=== PATIENT | male | born 1960 | race Caucasian/White ===

== ENCOUNTER → 2020-05-23 10:40 | Outpatient (BNVA) | payer MEDICARE, MEDICAID, SELFPAY | PROVIDERS: PCP Internal Medicine; Referring Provider Internal Medicine; Visit Provider Internal Medicine | DX: G47.33 Obstructive sleep apnea (adult) (pediatric) (principal); J44.9 Chronic obstructive pulmonary disease, unspecified; J30.9 Allergic rhinitis, unspecified; E66.9 Obesity, unspecified; Z68.35 Body mass index [BMI] 35.0-35.9, adult; Z99.89 Dependence on other enabling machines and devices | CPT/HCPCS: 80061; 99213 ==

== ENCOUNTER → 2020-07-13 10:07 | Outpatient (BNVA) | payer MEDICARE, MEDICAID, SELFPAY | PROVIDERS: PCP Internal Medicine; Referring Provider Internal Medicine; Visit Provider Internal Medicine Cardiovascular Disease | DX: I25.10 Atherosclerotic heart disease of native coronary artery without angina pectoris (principal); I48.0 Paroxysmal atrial fibrillation; E78.5 Hyperlipidemia, unspecified; G47.33 Obstructive sleep apnea (adult) (pediatric); Z99.89 Dependence on other enabling machines and devices | CPT/HCPCS: 93005; 99212 ==

== ENCOUNTER → 2020-08-15 10:54 | Outpatient (BNVA) | payer MEDICARE, MEDICAID, SELFPAY | PROVIDERS: PCP Internal Medicine; Visit Provider Internal Medicine | DX: Z13.89 Encounter for screening for other disorder (principal) | CPT/HCPCS: Q3014 ==

== ENCOUNTER → 2020-09-20 11:36 | Outpatient (BNVA) | payer MEDICARE, MEDICAID, SELFPAY | PROVIDERS: PCP Internal Medicine; Visit Provider Nurse Practitioner Family | DX: Z13.89 Encounter for screening for other disorder (principal) | CPT/HCPCS: Q3014 ==

== ENCOUNTER → 2020-10-12 09:05 | Outpatient (BNVA) | payer MEDICARE, MEDICAID, SELFPAY | PROVIDERS: PCP Internal Medicine; Visit Provider Internal Medicine Cardiovascular Disease | DX: I49.1 Atrial premature depolarization (principal) | CPT/HCPCS: 93005 ==

== ENCOUNTER → 2020-10-18 10:00 | Outpatient (BNVA) | payer MEDICARE, MEDICAID, SELFPAY | PROVIDERS: PCP Internal Medicine; Visit Provider Nurse Practitioner Family | DX: I10 Essential (primary) hypertension (principal); I48.0 Paroxysmal atrial fibrillation; I25.10 Atherosclerotic heart disease of native coronary artery without angina pectoris; Z79.899 Other long term (current) drug therapy; Z87.891 Personal history of nicotine dependence | CPT/HCPCS: 99212 ==

== ENCOUNTER → 2020-11-28 08:32 | Outpatient (REF) | payer MEDICARE, MEDICAID, SELFPAY ==
--- NOTE | 2020-11-28 08:40 | CA_ITS ---
Transthoracic Echocardiogram Amended Patient (Last, First, Middle): Isacc Frank J Gender: Male Date of : 1960 Age: 60 Procedure Date: 11/28/2020 Procedure Type: Transthoracic Echocardiogram Location: OP Height: 167.64 cm Weight: 99.79 kg BSA: 2.08 m2 Heart Rate: bpm BP: 169 / 79 mmHg [employer]olids Management Technician: DIANA Vilchis MD: Rochelle PABON Dry End Tester: Dom Boyd MD Symptoms: I25.10 - Atherosclerotic heart disease of [place] coronary artery without angina pectoris Study Quality: Good ECG Rhythm: Sinus Conclusions: - 1. Normal LV systolic and diastolic function 2. Normal cardiac valvular Doppler 3. Normal RV systolic pressure 4. No pericardial effusion Findings Left Ventricle Normal left ventricular size, thickness, and systolic function. The visually estimated ejection fraction is between 60-65%. Diastolic function is normal for age. Right Ventricle Normal right ventricular cavity size and systolic function. Atria The left atrium is likely dilated. There is lipomatous hypertrophy of the interatrial septum. There is no evidence of interatrial shunt. The right atrium is normal in size. Aortic Valve There is mild calcification of the aortic valve. There is mild thickening of the aortic valve. There is no aortic valve stenosis. There is no aortic valve regurgitation. Mitral Valve Normal mitral valve structure and function. There is trace mitral valve regurgitation. There is no mitral valve stenosis. Pulmonic Valve The pulmonic valve is likely normal. Tricuspid Valve Likely normal tricuspid valve structure and function. There is mild tricuspid valve regurgitation. The right ventricular systolic pressure is normal. The right ventricular systolic pressure is 35 mmHg. Normal right atrial pressure. There is no evidence of pulmonary hypertension. Great Vessels All visible segments of the aorta are normal in size. The pulmonary artery was not well visualized. Venous The inferior vena cava is normal in size and collapses greater than 50% with inspiration. Pericardium/Pleural There is no evidence of pericardial effusion. Prior Study Comparison No significant change compared to prior study dated: 02/21/2015. Measurements 2D Linear Measurements RVIDd: 3.70 RVIDd Index: 1.78 IVSd: 1.24 0.6-0.9/0.6-1.0 cm LVIDd: 4.87 3.9-5.3/4.2-5.9 cm LVIDd Index: 2.34 2.4-3.2/2.2-3.1 cm/m2 LVIDs: 3.51 2.0-3.6 cm LVPWd: 1.49 0.7-1.1 cm Ao Root: 2.70 2.1-3.5 cm LA Diam: 4.20 2.7-3.8/3.0-4.0 cm LAIDs Index: 2.02 1.5-2.3 cm/m2 LV Mass: 336.41 67-162/88-224 g LV Mass Index: 161.74 43-95/49-115 g/m2 LVOT Diam: 2.10 3.0+(-)1.3 cm 2D Volumes LA Vol: 19.90 2D Systolic Function EF 4C: 46.60 >55% EF 2C: 68.70 >55% Mitral Valve MV Pk E: 1.33 MV PK A: 0.70 MV Decel Time: 205.00 E/A: 1.90 E'Lateral: 5.22 E'Medial: 6.53 E/E' Med: 20.40 E/E' Lat: 25.50 Aortic Valve AoV Pk Jose: 2.05 AoV Mn Jose: 1.37 AoV VTI: 0.34 AoV Pk Grad: 17.00 Aov Mn Grad: 9.00 NED Cont.VTI: 2.56 LVOT LVOT Pk Jose: 1.62 LVOT Mn Jose: 0.97 LVOT VTI: 0.26 LVOT Pk Grad: 10.00 LVOT Mn Grad: 5.00 LVOT Diam: 2.10 LVOT Area: 3.46 Diastolic Function MV Pk E: 1.33 MV Pk A: 0.70 E/A: 1.90 E'Medial: 6.53 E/E' Med: 20.40 E' Laterial: 5.22 E/E' Lat: 25.50 Tricuspid Valve TR Pk Jose: 2.81 TR Pk Grad: 32.00 RA Press: 3.00 RVSP: 35.00 Great Vessels Aorta Ao Root-2D: 2.70 2.0-3.7 cm Ao Asc: 3.40 2.1-3.4 cm Updated in Other Vendor System with Status of Final Dom Boyd MD electronically signed on 11/29/2020 2:50:52 PM with status of Final
== END ==
LOC: HO.CARD 08:32
PROVIDERS: Visit Provider Nurse Practitioner Family
DX: I25.10 Atherosclerotic heart disease of native coronary artery without angina pectoris (principal); I48.0 Paroxysmal atrial fibrillation; I10 Essential (primary) hypertension
CPT/HCPCS: 93306

== ENCOUNTER → 2020-12-07 10:02 | Outpatient (BNVA) | payer MEDICARE, MEDICAID, SELFPAY | PROVIDERS: PCP Internal Medicine; Referring Provider Internal Medicine; Visit Provider Nurse Practitioner Family | DX: I10 Essential (primary) hypertension (principal); I25.10 Atherosclerotic heart disease of native coronary artery without angina pectoris; I48.0 Paroxysmal atrial fibrillation; R06.02 Shortness of breath; Z98.890 Other specified postprocedural states | CPT/HCPCS: 93005; 99212 ==

== ENCOUNTER 2020-12-19 10:23 | Outpatient (REF) | payer MEDICARE, MEDICAID, SELFPAY ==
--- NOTE | ~2020-12-19 | US_ITS ---
EXAMINATION: US RETROPERITONEAL LIMITED (RENAL ONLY) CLINICAL INFORMATION: Hypertension. COMPARISON: None. TECHNIQUE: Doppler color and grayscale evaluation of the kidneys and bilateral renal arteries and renal veins. FINDINGS: RIGHT KIDNEY: 12.8 x 5.2 x 5.6 cm (SAG x AP x TRV). The right kidney is abnormally rotated. The kidney is normal in size, contour, and echogenicity. Renal cortical thickness is normal. There is a 2 x 2.2 x 2.5 cm cyst in the lower pole. No calculi or mass. No hydronephrosis. LEFT KIDNEY: 12.7 x 5.7 x 5.1 cm (SAG x AP x TRV). The kidney is normal in size, contour, and echogenicity. Renal cortical thickness is normal. No calculi or focal parenchymal lesions. No hydronephrosis. The mid abdominal aorta is normal in caliber and demonstrates normal peak systolic velocity of 88 cm/s. The right renal artery is patent. Right renal artery peak systolic velocities are normal measuring 158 cm/s proximally, 114 cm/s in the midportion and 85 cm/s distally. The right renal artery to aorta ratio is normal measuring 1.8 cm. Resistive indices of the segmental renal arteries in the right kidney are normal measuring 0.7-0.8. The left renal artery is patent. Left renal artery peak velocities are normal measuring 135 cm/s proximally, 111 cm/s in the midportion and 54 cm/s distally. The left renal artery to aorta ratio is normal measuring 1.5. Resistive indices of the segmental renal arteries in the left kidney are normal measuring 0.7-0.8. The left renal vein is patent. US/US renal doppler IMPRESSION: Right renal cyst. No evidence of renal artery stenosis.
--- NOTE | ~2020-12-19 | US_ITS ---
EXAMINATION: US RETROPERITONEAL LIMITED (RENAL ONLY) CLINICAL INFORMATION: Hypertension. COMPARISON: None. TECHNIQUE: Doppler color and grayscale evaluation of the kidneys and bilateral renal arteries and renal veins. FINDINGS: RIGHT KIDNEY: 12.8 x 5.2 x 5.6 cm (SAG x AP x TRV). The right kidney is abnormally rotated. The kidney is normal in size, contour, and echogenicity. Renal cortical thickness is normal. There is a 2 x 2.2 x 2.5 cm cyst in the lower pole. No calculi or mass. No hydronephrosis. LEFT KIDNEY: 12.7 x 5.7 x 5.1 cm (SAG x AP x TRV). The kidney is normal in size, contour, and echogenicity. Renal cortical thickness is normal. No calculi or focal parenchymal lesions. No hydronephrosis. The mid abdominal aorta is normal in caliber and demonstrates normal peak systolic velocity of 88 cm/s. The right renal artery is patent. Right renal artery peak systolic velocities are normal measuring 158 cm/s proximally, 114 cm/s in the midportion and 85 cm/s distally. The right renal artery to aorta ratio is normal measuring 1.8 cm. Resistive indices of the segmental renal arteries in the right kidney are normal measuring 0.7-0.8. The left renal artery is patent. Left renal artery peak velocities are normal measuring 135 cm/s proximally, 111 cm/s in the midportion and 54 cm/s distally. The left renal artery to aorta ratio is normal measuring 1.5. Resistive indices of the segmental renal arteries in the left kidney are normal measuring 0.7-0.8. The left renal vein is patent. US/US renal BI IMPRESSION: Right renal cyst. No evidence of renal artery stenosis.
== END 2020-12-19 10:24 | disposition home or self-care (01) ==
LOC: HO.US 10:23
PROVIDERS: Visit Provider Nurse Practitioner Family
DX: I10 Essential (primary) hypertension (principal)
CPT/HCPCS: 76775; 93975

== ENCOUNTER → 2021-03-12 13:52 | Outpatient (BNVA) | payer MEDICARE, MEDICAID, SELFPAY | PROVIDERS: PCP Internal Medicine; Referring Provider Internal Medicine; Visit Provider Nurse Practitioner Family | DX: I25.10 Atherosclerotic heart disease of native coronary artery without angina pectoris (principal); I10 Essential (primary) hypertension; I48.0 Paroxysmal atrial fibrillation; R06.02 Shortness of breath; Z98.890 Other specified postprocedural states | CPT/HCPCS: 93005; 99212 ==

== ENCOUNTER 2021-05-03 08:36 | Outpatient (REF) | payer MEDICARE, MEDICAID, SELFPAY ==
[2021-05-03 08:57] LABS: MANUAL DIFF FLAG NO
[2021-05-03 09:25] LABS: Basophils Percent Auto 0.3 % (0-2); Eosinophils Absolute Auto 0.2 X10*3/uL (0.0-0.4); Eosinophils Percent Auto 2.1 % (0-4); Hematocrit 48.8 % (42-52); Hemoglobin 14.8 g/dl (14.0-18.0); Imm Gran Abs Auto 0.08 X10*3/uL (0.00-0.03); Imm Gran Pct Auto 0.9 % (0.0-0.4); Lymphocytes Absolute Auto 1.3 X10*3/uL (1.2-4.9); Lymphocytes Percent Auto 14.3 % (20-40); Mean Corpuscular HGB Conc 30.3 g/dl (31.0-36.0); Mean Corpuscular Hemoglobin 28.3 pg (27.0-33.0); Mean Corpuscular Volume 93.3 fL (80-98); Mean Platelet Volume 10.7 fL (9.4-12.4); Monocytes Absolute Auto 1.1 X10*3/uL (0.1-1.2); Neutrophils Absolute Auto 6.2 X10*3/uL (2.0-8.3); Neutrophils Percent Auto 70.4 % (45-73); Platelet Count 196 X10*3/uL (160-400); Red Blood Count 5.23 X10*6/uL (4.60-5.80); Red Cell Distribution Width 13.8 % (11.0-16.0); White Blood Count 8.8 X10*3/uL (4.8-10.8)
[2021-05-03 10:05] LABS: Alanine Aminotransferase 14 U/L (0-40); Albumin Level 4.1 g/dL (3.5-5.0); Alkaline Phosphatase 79 U/L (39-117); Anion Gap 13 (12-20); Aspartate Amino Transferase 14 U/L (5-37); Bilirubin Total 0.8 mg/dL (0.0-1.0); Blood Urea Nitrogen 7 mg/dL (9-16); Calcium 9.4 mg/dL (8.4-10.2); Carbon Dioxide 36 mmol/L (22-29); Chloride 96 mmol/L (96-108); Cholesterol 160 mg/dL; Estimated Glomerular Filt Rate > 60; Glucose Fasting 169 mg/dL (60-99); HDL Cholesterol 49 mg/dL; LDL Cholesterol Calculated 89 mg/dl; Potassium 4.8 mmol/L (3.3-5.1); Sodium 140 mmol/L (135-145); Total Protein 7.4 g/dL (6.5-8.0); Triglycerides 112 mg/dL
[2021-05-03 10:16] LABS: Thyroid Stimulating Hormone 2.79 uIU/mL (0.32-4.0)
== END 2021-05-03 08:37 | disposition home or self-care (01) ==
LOC: HO.LAB 08:36
PROVIDERS: Nurse Practitioner Family; PCP Internal Medicine; Visit Provider Internal Medicine
DX: Z00.00 Encounter for general adult medical examination without abnormal findings (principal); I10 Essential (primary) hypertension; E11.9 Type 2 diabetes mellitus without complications; E03.9 Hypothyroidism, unspecified
CPT/HCPCS: 36415; 80053; 80061; 84443; 85025

== ENCOUNTER 2021-05-09 11:22 | Inpatient (IN) | payer MEDICARE, MEDICAID, SELFPAY ==
[2021-05-09] VITALS (16 sets, daily range): BP systolic 121–152; BP diastolic 63–73; PULSE 69–76; RESP 11–22; TEMP 34.3–36.6; O2SAT 60–96; BMI 37.1; BMI 39.3
--- NOTE | ~2021-05-09 | XR_ITS ---
EXAMINATION: XR CHEST CLINICAL INFORMATION: Shortness of breath. COMPARISON: Most recent chest radiograph dated 03/21/2020. TECHNIQUE: Frontal view of the chest was obtained. FINDINGS: Mild elevation of the right hemidiaphragm. Patchy bilateral airspace opacities, new/increased when compared to the prior examination. New, small right-sided pleural effusion. Stable cardiomegaly. No pneumothorax. XR/XR chest 1V IMPRESSION: Patchy bilateral airspace opacities and right-sided pleural effusion which are new/increased when compared to the prior examination. Stable cardiomegaly. Findings can be seen in the setting of CHF. An underlying infectious or inflammatory process could be considered in the appropriate clinical setting.
--- NOTE | ~2021-05-09 | XR_ITS ---
EXAMINATION: XR CHEST CLINICAL INFORMATION: Hypoxia COMPARISON: CT chest May 09, 2021. Chest x-ray May 09, 2021 TECHNIQUE: Frontal portable view of the chest was obtained. 11:04 PM FINDINGS: Persistent bilateral patchy airspace opacities at lung bases. Central hilar pulmonary vessels are mildly prominent. Blunting right costophrenic angle due to right pleural effusion. There is heart size enlarged. XR/XR chest 1V IMPRESSION: 1. Persistent bibasilar airspace opacities. 2. Persistent right pleural effusion. 3. Cardiomegaly. Mild central hilar pulmonary vascular prominence.
--- NOTE | ~2021-05-09 | CT_ITS ---
EXAMINATION: CT CHEST WITHOUT CONTRAST CLINICAL INFORMATION: Shortness of breath. COMPARISON: Chest radiograph done earlier today at 2:07 PM. TECHNIQUE: Multidetector volumetric CT imaging of the chest was done. Axial MIP volume rendering provided. Sagittal and coronal reformatted images were obtained. This CT examination was performed using dose optimization techniques as appropriate, variously including the following: *Automated exposure control *Adjustment of mA and/or kV according to patient size (this includes techniques or standardized protocols for targeted exams where dose is matched to indication/reason for exam; i.e. 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 LUNGS: Low lung volumes. There are small bilateral pleural effusions with associated consolidation/atelectasis of the lung bases, right greater than left. There is mild mosaic attenuation of the lung parenchyma with smooth interlobular septal thickening. In the right upper lobe there is a 9 mm somewhat platelike (69, 7) likely representing atelectasis or interlobular septal thickening. No suspicious pulmonary nodules. The main airways are patent. MEDIASTINUM: Cardiomegaly with trace amount of pericardial fluid. Coronary calcifications and atherosclerotic disease of the thoracic aorta. Mediastinal lymphadenopathy, for instance route sales representative nodules are a right pretracheal lymph node measuring up to 1.1 cm in maximum short axis (2104) and a prevascular lymph node measuring up to 8 mm in maximum short axis (20:4). There is a prominent epicardial lymph node measuring up to 7 mm short axis (15:7). Normal appearance of the thyroid gland. PLEURA: As above right greater than left small pleural effusions. No pneumothorax. AXILLA: There are a few prominent and indeterminate bilateral axillary lymph nodes for example measuring up to 7 mm short axis on sagittal image 30:2 on the right axilla and up to 1 cm on the right axillary region (39:4). UPPER ABDOMEN: Unremarkable. OSSEOUS STRUCTURES: No acute osseous abnormalities. Multilevel thoracic spondylosis. Healed nondisplaced right-sided rib fractures. CT/CT chest wo con IMPRESSION: Small bilateral pleural effusions with associated atelectasis of the lung bases and smooth interlobular septal thickening are likely related with pulmonary edema. However, an underlying infectious or inflammatory process cannot be entirely excluded. Mediastinal, epicardial, and axillary lymph nodes are indeterminate but likely reactive in nature. Cardiomegaly.
--- NOTE | 2021-05-09 13:29 | ECG_ITS ---
Test Reason : DYSPNEA Blood Pressure : / mmHG Vent. Rate : 075 BPM Atrial Rate : 075 BPM P-R Int : 166 ms QRS Dur : 106 ms QT Int : 398 ms P-R-T Axes : 059 098 038 degrees QTc Int : 444 ms Normal sinus rhythm Rightward axis Incomplete left bundle branch block Borderline ECG When compared with ECG of 23-MAR-2020 09:38, Premature atrial complexes are no longer Present Referred By: Erin Garcia Electronically Signed By:MECHE COLÓN
--- NOTE | 2021-05-09 13:31 | ED_ITS ---
HPI - SOB/Dyspnea General Chief Complaint: Dyspnea Stated Complaint: diff breathing, both legs swollen Time Seen by Provider: 05/09/21 13:28 Source: patient, family ([id number]) and EMS Mode of arrival: EMS Limitations: no limitations History of Present Illness HPI Narrative: 61-year-old male with history of COPD, coronary artery disease, paroxysmal AFib (treated with cardioversion), patient came in for evaluation of difficulty breathing. Patient stated started about a month ago and progressively and gradually getting worse, symptoms is worsening with exertion or being in the supine position, improving with rest, no associations of chest pain or nausea or vomiting or dizziness. Bilateral lower extremity swelling that is worsening over the past couple weeks, patient is taking water pills and reportedly making good urine. had this symptoms in the past and been evaluated by the bonderizer. Patient also had a history of COPD supposed to use CPAP at home nighttime but patient is not compliant with that. Patient is DNR currently. Patient thinking about ruling into hospice service but not for now and after he feels better. Related Data Home Medications Medication Instructions Recorded Confirmed atorvastatin 80 mg tablet 80 mg PO BEDTIME 05/09/21 05/09/21 bupropion HCl 150 mg tablet,12 hr 300 mg PO DAILY 05/09/21 05/09/21 sustained-release Previous Rx's Medication Instructions Recorded furosemide 20 mg tablet 20 mg PO DAILY #90 tab 07/25/20 diltiazem HCl 120 mg 120 mg PO DAILY #90 cap 09/06/20 capsule,extended release 24 hr fluticasone furoate 200 1 inh INHALATION DAILY #60 cap 12/12/20 mcg-vilanterol 25 mcg/dose inhalation powder (Breo Ellipta) hydralazine 50 mg tablet 50 mg PO TID #90 tab 01/10/21 rivaroxaban 20 mg tablet (Xarelto) 20 mg PO DAILY #90 tab 01/23/21 ipratropium 0.5 mg-albuterol 3 mg 3 ml INHALATION QID PRN #360 ml 03/12/21 (2.5 mg base)/3 mL nebulization soln Ventolin HFA 90 mcg/actuation 2 puff PO QID #18 g NS 03/13/21 aerosol inhaler (albuterol sulfate) losartan 100 mg tablet 100 mg PO DAILY #90 tab 04/02/21 isosorbide mononitrate 60 mg 60 mg PO DAILY #90 tab 04/16/21 tablet,extended release 24 hr montelukast 10 mg tablet 10 mg PO DAILY #90 tab 04/16/21 dronedarone 400 mg tablet (Multaq) 400 mg PO Q12H 90 Days #180 tab 04/18/21 ezetimibe 10 mg tablet (Zetia) 10 mg PO DAILY 90 Days #90 tab 05/03/21 Allergies Allergy/AdvReac Type Severity Reaction Status Date / Time No Known Allergies Allergy Verified 03/12/21 14:00 Review of Systems Review of Systems: All other systems are reviewed and are negative Constitutional: Reports as per HPI and Reports no additional constitutional com plaints Eyes: Reports as per HPI and Reports no additional eye complaints Reports system reviewed and no additional complaints, except as documented Cardiovascular: Reports as per HPI and Reports no additional cardiovascular complaints Respiratory: Reports as per HPI and Reports no additional respiratory complaints Gastrointestinal: Reports as per HPI and Reports no additional gastrointestinal complaints Genitourinary: Reports no additional female genitourinary complaints Musculoskeletal: Reports no additional musculoskeletal complaints Skin/Breast: Reports system reviewed and no additional complaints, except as docu Psychiatric: Reports no additional psychiatric complaints Endocrine: Reports no additional endocrine complaints Hematologic/Lymphatic: Reports no additional hematologic/lymphatic complaints Allergic/Immunologic: Reports no additional allergic/immunologic complaints Reports system reviewed and no additional complaints, except as documented and Reports Abnormal speech present PENDING SALE TO [facility] Past Medical History Medical History Allergic rhinitis CAD (coronary artery disease) COPD (chronic obstructive pulmonary disease) COPD (chronic obstructive pulmonary disease) Hyperlipidemia Obesity GABRIELLE on CPAP Paroxysmal atrial fibrillation Shortness of breath Surgical History Hx of cardiac cath Family History Family History Father Medical history unknown Mother Lung cancer CVD (cardiovascular disease) Hypertension Social History Social History Housing: House Alcohol intake: current Alcohol intake frequency: 3 or more drinks per day Alcohol type: beer Patient Tobacco Use Status: Former Tobacco user Quit Date: 2015 Tobacco use type: Cigarette Years Smoked: 40+/- Second Hand Smoke Exposure: No Use of substances other than those prescribed or required for medical reasons: No Advance Directives: No service: No Current occupational status: disabled Physical Exam Vital Signs: Vital Signs: Last Vital Signs Temp 97.8 F 05/09/21 13:17 Pulse 69 05/09/21 17:57 Resp 16 05/09/21 17:57 BP 131/65 05/09/21 17:57 Pulse Ox 96 05/09/21 17:57 Body Mass Index 37.1 Vital signs have been reviewed as appeared to be correct. Blood pressure normal. Heart rate normal. Respiration rate normal. Temperature normal. Oxygen saturation normal. Appearance: Alert. Oriented X3. No acute distress. Head: Normal external exam. Normocephalic. Atraumatic. No Mendez signs noted. No raccoon eyes noted Eyes: PERRLA. EOMI. Conjunctiva and sclera normal. Eyelids normal. ENT: TM's Normal. Pharynx normal. Uvula midline. Moist mucous membranes. No trismus noted. No drooling noted. No muffled voice noted. Neck: Normal inspection. Neck supple. FROM. No adenopathy. Thyroid Normal. No meningeal signs. No neck mass noted. CVS: Normal heart rate and rhythm. Heart sound normal. No murmurs noted. Pulses normal throughout. Respiratory: No respiratory distress. Painless inspiration. Bilateral diffuse expiratory wheezing with prolonged expiration, bilateral basilar rales nontender. No accessory muscle usage noted or decreased air movement noted. Abdomen: Soft and nontender. Bowel sounds normal in all 4 quadrants. No distent ion noted. No organomegaly noted. No visible injury noted. Back: No CVA tenderness. Full range of motion noted. Skin: Skin warm and dry. Normal skin color. Normal skin turgor. No rashes/lesions/lacerations noted. Extremities: +2 lower extremity pitting edema. Extremities exhibit normal rang e of motion. Extremities nontender. Neuro: Oriented X 3. Cranial nerve exam: II-XII are grossly intact No motor deficit. No sensory deficit. Reflexes normal. Course Course Course Narrative: Assessment and plan. 61-year-old male history of COPD/CAD came in with shortness of breath, clinical history/chest x-ray/are consistent with congestive heart failure exacerbation. Patient is already on diuretics, patient was given extra 40 mg of Lasix with some improvement of patient's symptoms, patient needs to be hospitalized for further CHF management. Reevaluation(s) Reevaluation #1: Patient in the room is more lethargic and difficult to arouse, ABG showed patient is acidotic with hypercarbia showing acute on chronic res piratory failure with hypercarbia, patient was placed on BiPAP machine which showed slight improvement and patient mentation, the case discussed with his brother Evan miranda and before I discussed that with the patient and patient's wishes is to be on hospice service with IT TRAINING SPECIALIST only. That was discussed with the family 1 more time and everybody in agreement that what was the patient wanted, at this point will discontinue any therapeutic measure, discontinue the BiPAP, admit the patient for IT TRAINING SPECIALIST only. Time: 17:01 Reevaluation #2: More talk on conversation with the family/patient given patient's young age and his good chance to have a decent lifestyle if his COPD is well controlled. Patient is postponing decision to be IT TRAINING SPECIALIST until he try BiPAP machine for overnight and stay in ICU. Patient still remains DNR. Will hold off on making the patient IT TRAINING SPECIALIST. Time: 18:35 MDM - SOB/Dyspnea Medical Records Attestation: I reviewed the patient's medical records. Lab Data Attestation: I reviewed the patient's lab results. Result diagrams: 05/09/21 14:48 05/09/21 13:59 Labs: Lab Results 05/09/21 05/09/21 05/09/21 Range/Units 13:57 13:59 13:59 WBC (4.8-10.8) X10*3/uL RBC (4.60-5.80) X10*6/uL Hgb (14.0-18.0) g/dl Hct (42-52) % MCV (80-98) fL MCH (27.0-33.0) pg MCHC (31.0-36.0) g/dl RDW (11.0-16.0) % Plt Count (160-400) X10*3/uL MPV (9.4-12.4) fL Immature Gran % (Auto) (0.0-0.4) % Neut % (Auto) (45-73) % Lymph % (Auto) (20-40) % Cherry % (Auto) (2-11) % Eos % (Auto) (0-4) % Baso % (Auto) (0-2) % Lymph # (Auto) (1.2-4.9) X10*3/uL Cherry # (Auto) (0.1-1.2) X10*3/uL Eos # (Auto) (0.0-0.4) X10*3/uL Baso # (Auto) (0.0-0.2) X10*3/uL Abs Immat Gran (auto) (0.00-0.03) X10*3/uL Absolute Neuts (auto) (2.0-8.3) X10*3/uL Absolute Nucleated RBC (0.0-0.012) X10*3/uL Nucleated RBC % (auto) (0.0-0.2) /100WBC O2 Saturation % ABG pH at Pt Temp (7.35-7.45) ABG pH (Temp Correct) (7.35-7.45) ABG pCO2 at Pt Temp (32-45) mmHg ABG pCO2 (Temp Corrct (32-45) mmHg ABG pO2 at Pt Temp (83-108) mmHg ABG pO2 (Temp Correct (83-108) ABG HCO3 (22-26) mmol/L ABG Base Excess (Actual) mmol/L Sodium 130 L (135-145) mmol/L Potassium 4.4 (3.3-5.1) mmol/L Chloride 87 L (96-108) mmol/L Carbon Dioxide 34 H (22-29) mmol/L Anion Gap 13 (12-20) BUN 8 L (9-16) mg/dL Creatinine 0.79 (0.5-1.4) mg/dL Estim Creat Clear Calc 111.1 Estimated GFR > 60 Random Glucose 153 H (60-115) mg/dL Lactic Acid 0.9 (0.5-2.0) mmol/L Calcium 8.7 D (8.4-10.2) mg/dL Total Bilirubin 1.1 H (0.0-1.0) mg/dL Direct Bilirubin 0.4 (0.0-0.5) mg/dL AST 24 D (5-37) U/L ALT 14 (0-40) U/L Alkaline Phosphatase 78 (39-117) U/L Troponin I High Sens (<3.5-35.0) ng/L B-Natriuretic Peptide (<100) pg/mL Total Protein 7.6 (6.5-8.0) g/dL Albumin 4.2 (3.5-5.0) g/dL Lipase 51 (8-78) U/L Procalcitonin ng/mL COVID-19 ([facility]) Negative (Negative) COVID-19 Clin Com See Note 05/09/21 05/09/21 05/09/21 Range/Units 13:59 14:48 14:48 WBC 9.2 (4.8-10.8) X10*3/uL RBC 5.12 (4.60-5.80) X10*6/uL Hgb 14.7 (14.0-18.0) g/dl Hct 46.2 (42-52) % MCV 90.2 (80-98) fL MCH 28.7 (27.0-33.0) pg MCHC 31.8 (31.0-36.0) g/dl RDW 14.2 (11.0-16.0) % Plt Count 179 (160-400) X10*3/uL MPV 10.3 (9.4-12.4) fL Immature Gran % (Auto) 0.7 H (0.0-0.4) % Neut % (Auto) 71.2 (45-73) % Lymph % (Auto) 14.3 L (20-40) % Cherry % (Auto) 11.5 H (2-11) % Eos % (Auto) 2.0 (0-4) % Baso % (Auto) 0.3 (0-2) % Lymph # (Auto) 1.3 (1.2-4.9) X10*3/uL Cherry # (Auto) 1.1 (0.1-1.2) X10*3/uL Eos # (Auto) 0.2 (0.0-0.4) X10*3/uL Baso # (Auto) 0.0 (0.0-0.2) X10*3/uL Abs Immat Gran (auto) 0.06 H (0.00-0.03) X10*3/uL Absolute Neuts (auto) 6.5 (2.0-8.3) X10*3/uL Absolute Nucleated RBC 0.000 (0.0-0.012) X10*3/uL Nucleated RBC % (auto) 0.0 (0.0-0.2) /100WBC O2 Saturation % ABG pH at Pt Temp (7.35-7.45) ABG pH (Temp Correct) (7.35-7.45) ABG pCO2 at Pt Temp (32-45) mmHg ABG pCO2 (Temp Corrct (32-45) mmHg ABG pO2 at Pt Temp (83-108) mmHg ABG pO2 (Temp Correct (83-108) ABG HCO3 (22-26) mmol/L ABG Base Excess (Actual) mmol/L Sodium (135-145) mmol/L Potassium (3.3-5.1) mmol/L Chloride (96-108) mmol/L Carbon Dioxide (22-29) mmol/L Anion Gap (12-20) BUN (9-16) mg/dL Creatinine (0.5-1.4) mg/dL Estim Creat Clear Calc Estimated GFR Random Glucose (60-115) mg/dL Lactic Acid (0.5-2.0) mmol/L Calcium (8.4-10.2) mg/dL Total Bilirubin (0.0-1.0) mg/dL Direct Bilirubin (0.0-0.5) mg/dL AST (5-37) U/L ALT (0-40) U/L Alkaline Phosphatase (39-117) U/L Troponin I High Sens 11.2 (<3.5-35.0) ng/L B-Natriuretic Peptide 372 H (<100) pg/mL Total Protein (6.5-8.0) g/dL Albumin (3.5-5.0) g/dL Lipase (8-78) U/L Procalcitonin 0.16 ng/mL COVID-19 ([facility]) (Negative) COVID-19 Clin Com 05/09/21 Range/Units 16:18 WBC (4.8-10.8) X10*3/uL RBC (4.60-5.80) X10*6/uL Hgb (14.0-18.0) g/dl Hct (42-52) % MCV (80-98) fL MCH (27.0-33.0) pg MCHC (31.0-36.0) g/dl RDW (11.0-16.0) % Plt Count (160-400) X10*3/uL MPV (9.4-12.4) fL Immature Gran % (Auto) (0.0-0.4) % Neut % (Auto) (45-73) % Lymph % (Auto) (20-40) % Cherry % (Auto) (2-11) % Eos % (Auto) (0-4) % Baso % (Auto) (0-2) % Lymph # (Auto) (1.2-4.9) X10*3/uL Cherry # (Auto) (0.1-1.2) X10*3/uL Eos # (Auto) (0.0-0.4) X10*3/uL Baso # (Auto) (0.0-0.2) X10*3/uL Abs Immat Gran (auto) (0.00-0.03) X10*3/uL Absolute Neuts (auto) (2.0-8.3) X10*3/uL Absolute Nucleated RBC (0.0-0.012) X10*3/uL Nucleated RBC % (auto) (0.0-0.2) /100WBC O2 Saturation 94.0 % ABG pH at Pt Temp 7.19 L* (7.35-7.45) ABG pH (Temp Correct) 7.19 L* (7.35-7.45) ABG pCO2 at Pt Temp 102 H* (32-45) mmHg ABG pCO2 (Temp Corrct 103 H* (32-45) mmHg ABG pO2 at Pt Temp 90 (83-108) mmHg ABG pO2 (Temp Correct 91 (83-108) ABG HCO3 39 H (22-26) mmol/L ABG Base Excess (Actual) 6.2 mmol/L Sodium (135-145) mmol/L Potassium (3.3-5.1) mmol/L Chloride (96-108) mmol/L Carbon Dioxide (22-29) mmol/L Anion Gap (12-20) BUN (9-16) mg/dL Creatinine (0.5-1.4) mg/dL Estim Creat Clear Calc Estimated GFR Random Glucose (60-115) mg/dL Lactic Acid (0.5-2.0) mmol/L Calcium (8.4-10.2) mg/dL Total Bilirubin (0.0-1.0) mg/dL Direct Bilirubin (0.0-0.5) mg/dL AST (5-37) U/L ALT (0-40) U/L Alkaline Phosphatase (39-117) U/L Troponin I High Sens (<3.5-35.0) ng/L B-Natriuretic Peptide (<100) pg/mL Total Protein (6.5-8.0) g/dL Albumin (3.5-5.0) g/dL Lipase (8-78) U/L Procalcitonin ng/mL COVID-19 ([facility]) (Negative) COVID-19 Clin Com Imaging Data Chest x-ray: Radiologist's impression: Patchy bilateral airspace opacities and right- sided pleural effusion which are new/increased when compared to the prior examination. Stable cardiomegaly. Findings can be seen in the setting of CHF. An underlying infectious or inflammatory process could be considered in the appropriate clinical setting. ECG Data Interpretation: Normal sinus rhythm at 75 beats per minute, right axis deviation, incomplete left bundle branch block, no ST-T ischemic change. Critical Care Time Critical Care Time Critical Care Time: Yes Total Critical Care Time: 60 Attestation: I spent 60 minutes providing critical care service to the patient, this including time spent at the bedside to evaluate the patient, reassess the patient, monitoring vital signs, review labs, and radiographic studies, counseling the patient/family, discussing the case with consultants, disposition the patient. Discharge Plan Discharge Clinical Impression: CAD (coronary artery disease), Congestive heart failure, Acute exacerbation of chronic obstructive airways disease, Acute and chronic respiratory failure with hypercapnia Patient Disposition: Admitted As Inpatient
--- NOTE | 2021-05-09 13:50 | PHA.MEDREC ---
Pharmacy Consult ? Medication Reconciliation Pharmacy has completed the medication reconciliation. Patient was not coherent during discussion. At first seem like a good historian, but the more we talk the more out of it he seemed. All medications have been recently filled expect nitrogylercin tablets and the nystatin oral suspension. Med Rec done based on pharmacy information. Lyn Bernal, PharmD
[2021-05-09] MEDS: Furosemide 40 MG/4 ML VIAL IVPUSH ×2 (14:02→22:16)
[2021-05-09 14:29] LABS: Lactic Acid 0.9 mmol/L (0.5-2.0)
[2021-05-09 14:34] LABS: COVID-19 Test Negative (Negative); IDNOW Serial# 08D9AD1C
[2021-05-09 14:35] LABS: Alanine Aminotransferase 14 U/L (0-40); Albumin Level 4.2 g/dL (3.5-5.0); Alkaline Phosphatase 78 U/L (39-117); Anion Gap 13 (12-20); Aspartate Amino Transferase 24 U/L (5-37); Bilirubin Direct 0.4 mg/dL (0.0-0.5); Bilirubin Total 1.1 mg/dL (0.0-1.0); Blood Urea Nitrogen 8 mg/dL (9-16); Calcium 8.7 mg/dL (8.4-10.2); Carbon Dioxide 34 mmol/L (22-29); Chloride 87 mmol/L (96-108); Creatinine Clr Calc Pharmacy 111.1; Estimated Glomerular Filt Rate > 60; Glucose Random 153 mg/dL (60-115); Lipase 51 U/L (8-78); Potassium 4.4 mmol/L (3.3-5.1); Sodium 130 mmol/L (135-145); Total Protein 7.6 g/dL (6.5-8.0)
[2021-05-09 15:00] LABS: MANUAL DIFF FLAG NO
[2021-05-09 15:01] LABS: Basophils Percent Auto 0.3 % (0-2); Eosinophils Absolute Auto 0.2 X10*3/uL (0.0-0.4); Hematocrit 46.2 % (42-52); Hemoglobin 14.7 g/dl (14.0-18.0); Imm Gran Abs Auto 0.06 X10*3/uL (0.00-0.03); Imm Gran Pct Auto 0.7 % (0.0-0.4); Lymphocytes Absolute Auto 1.3 X10*3/uL (1.2-4.9); Lymphocytes Percent Auto 14.3 % (20-40); Mean Corpuscular HGB Conc 31.8 g/dl (31.0-36.0); Mean Corpuscular Hemoglobin 28.7 pg (27.0-33.0); Mean Corpuscular Volume 90.2 fL (80-98); Mean Platelet Volume 10.3 fL (9.4-12.4); Monocytes Absolute Auto 1.1 X10*3/uL (0.1-1.2); Monocytes Percent Auto 11.5 % (2-11); Neutrophils Absolute Auto 6.5 X10*3/uL (2.0-8.3); Neutrophils Percent Auto 71.2 % (45-73); Platelet Count 179 X10*3/uL (160-400); Red Blood Count 5.12 X10*6/uL (4.60-5.80); Red Cell Distribution Width 14.2 % (11.0-16.0); White Blood Count 9.2 X10*3/uL (4.8-10.8)
[2021-05-09 15:20] LABS: Troponin-I High Sensitivity 11.2 ng/L (<3.5-35.0)
--- NOTE | 2021-05-09 15:35 | PC.NURSE ---
Rogelio Tracy (brother) - Cell Phone #:
[2021-05-09 16:08] LABS: B Type Natriuretic Peptide 372 pg/mL (<100)
--- NOTE | 2021-05-09 16:12 | PC.NURSE ---
pt is still lethargic and sleepy. HAving difficulty remaining awaker during assessment. Pt was found with oxygen off satting in the 60s, pt was re connected to oxygen at 6 liters and sats climbed to baseline 92%. ADELINA greer came to bedside for low saturation. pt stataes no pain. no other changes from earlier assessment. Pt states he does wear oxygen at home 2-4L
[2021-05-09 16:24] LABS: ABG Base Excess 6.2 mmol/L; ABG HCO3 39 mmol/L (22-26); ABG pCO2 102 mmHg (32-45); ABG pCO2 TC 103 mmHg (32-45); ABG pH 7.19 (7.35-7.45); ABG pH TC 7.19 (7.35-7.45); ABG pO2 90 mmHg (83-108); ABG pO2 TC 91 (83-108)
[2021-05-09 16:24] LABS: ABG Refer to POC result
[2021-05-09 17:15] LABS: Procalcitonin 0.16 ng/mL
--- NOTE | 2021-05-09 17:54 | PM.CCHP ---
History of Present Illness Date of Service: 05/09/21 Attending physician on admission: Erin Garcia Chief Complaint: Increasing shortness of breath 61-year-old male who denies any drug or alcohol issue comes in with lethargy as a manifestation of altered mental status and increasing shortness of breath and I saw him in the emergency room obtained a dry CT scan which I thought showed a a bilateral micronodular infiltrate and very small right greater than left bilateral pleural effusions but with a slight degree of a overlying atelectasis nothing are chattering no distinct infiltrate and my bedside echo showed that he did have mild dilatation of the right heart normal left ventricular size and systolic function without segmental wall motion abnormality and no pericardial disease no primary valve disease ejection fraction certainly exceeding 65% and on BiPAP E appear to be waking up a little and his initial blood gas had indicated acute on chronic hypercarbic respiratory failure and he had a diffuse either erythroderma co reaction secondary to his chronic via bilateral leg edema it certainly did not appear to be a cellulitis otherwise by exam he had good bilateral carotid upstrokes no neck vein distension abdomen was just moderately obese he really appeared by body habitus to be a chronic Pickwickian Review of Systems Review of Systems: Denied any other constitutional issues no fever no chills I did note that he was taking dronedarone so clearly has a background of paroxysmal atrial fibrillation Also taking Xarelto due to the paroxysmal atrial fibrillation Yes all other systems are reviewed and are negative [facility] Past Medical History Medical History Allergic rhinitis CAD (coronary artery disease) COPD (chronic obstructive pulmonary disease) COPD (chronic obstructive pulmonary disease) Hyperlipidemia Obesity GABRIELLE on CPAP Paroxysmal atrial fibrillation Shortness of breath Family History Family History Father Medical history unknown Mother Lung cancer CVD (cardiovascular disease) Hypertension Surgical History Surgical History Hx of cardiac cath Social History Social History Household Members: Unknown / Unable to assess Housing: Unknown / Unable to assess Do you presently have visiting nurse or other home services: No Unable to assess alcohol history related to: Unable to respond Alcohol intake: current Alcohol intake frequency: 3 or more drinks per day Alcohol type: beer Patient Tobacco Use Status: Former Tobacco user Quit Date: 2015 Tobacco use type: Cigarette Years Smoked: 40+/- Second Hand Smoke Exposure: No Use of substances other than those prescribed or required for medical reasons: Unable to respond Currently Displaying Signs/Symptoms of Drug Intoxication Withdrawal: No Advance Directives: Yes Advance Directives on File: Yes Advance Directives Date on File: 05/09/21 Recently lost weight without trying: Unsure Nutrition Risks: No Nutritional Risk service: No Current occupational status: disabled Meds Allergies Allergy/AdvReac Type Severity Reaction Status Date / Time No Known Allergies Allergy Verified 03/12/21 14:00 Active Medications: Current Medications Pharmacy Consult (Consult Rx Perform Med Rec) 1 each MISCELLANE ONCE PRN PRN Reason: Consult order Pharmacy Consult (Consult Rx Perform Med Rec) 1 each MISCELLANE ONCE PRN PRN Reason: Consult order Home Medications Medication Instructions Recorded Confirmed Last Taken Type atorvastatin 80 mg tablet 80 mg PO BEDTIME 05/09/21 05/09/21 Unknown History bupropion HCl 150 mg tablet,12 hr 300 mg PO DAILY 05/09/21 05/09/21 Unknown History sustained-release Physical Exam Vital Signs: Vital Signs: Last Vital Signs Temp 97.8 F 05/09/21 13:17 Pulse 76 05/09/21 16:10 Resp 11 L 05/09/21 16:28 BP 147/73 H 05/09/21 16:10 Pulse Ox 92 05/09/21 16:10 Body Mass Index 37.1 Lethargic but arousable and nonfocal neurologically Skin of lower extremities over but appears to be 2+ peripheral edema showed a little bit of weeping bilateral rubor which was symmetric does not appear to be cellulitic Cardiac exam with no gallops or murmurs and has good bilateral carotid upstrokes Benign abdomen no organomegaly Chest with decreased breath sounds bilaterally Results Labs CBC and Chem 7: 05/10/21 04:36 05/10/21 04:36 Labs: Laboratory Results - last 24 hr 05/09/21 05/09/21 05/09/21 13:57 13:59 13:59 MCV MCH MCHC RDW Plt Count MPV Immature Gran % (Auto) Neut % (Auto) Lymph % (Auto) Wilkes % (Auto) Eos % (Auto) Baso % (Auto) Lymph # (Auto) Wilkes # (Auto) Eos # (Auto) Baso # (Auto) Abs Immat Gran (auto) Absolute Neuts (auto) Absolute Nucleated RBC Nucleated RBC % (auto) O2 Saturation ABG pH at Pt Temp ABG pH (Temp Correct) ABG pCO2 at Pt Temp ABG pCO2 (Temp Corrct ABG pO2 at Pt Temp ABG pO2 (Temp Correct ABG HCO3 ABG Base Excess (Actual) Anion Gap 13 Estim Creat Clear Calc 111.1 Estimated GFR > 60 Random Glucose 153 H Lactic Acid 0.9 Calcium 8.7 D Total Bilirubin 1.1 H Direct Bilirubin 0.4 AST 24 D ALT 14 Alkaline Phosphatase 78 Troponin I High Sens B-Natriuretic Peptide Total Protein 7.6 Albumin 4.2 Lipase 51 Procalcitonin COVID-19 ([facility]) Negative COVID-19 Clin Com See Note 05/09/21 05/09/21 05/09/21 13:59 14:48 14:48 MCV 90.2 MCH 28.7 MCHC 31.8 RDW 14.2 Plt Count 179 MPV 10.3 Immature Gran % (Auto) 0.7 H Neut % (Auto) 71.2 Lymph % (Auto) 14.3 L Wilkes % (Auto) 11.5 H Eos % (Auto) 2.0 Baso % (Auto) 0.3 Lymph # (Auto) 1.3 Wilkes # (Auto) 1.1 Eos # (Auto) 0.2 Baso # (Auto) 0.0 Abs Immat Gran (auto) 0.06 H Absolute Neuts (auto) 6.5 Absolute Nucleated RBC 0.000 Nucleated RBC % (auto) 0.0 O2 Saturation ABG pH at Pt Temp ABG pH (Temp Correct) ABG pCO2 at Pt Temp ABG pCO2 (Temp Corrct ABG pO2 at Pt Temp ABG pO2 (Temp Correct ABG HCO3 ABG Base Excess (Actual) Anion Gap Estim Creat Clear Calc Estimated GFR Random Glucose Lactic Acid Calcium Total Bilirubin Direct Bilirubin AST ALT Alkaline Phosphatase Troponin I High Sens 11.2 B-Natriuretic Peptide 372 H Total Protein Albumin Lipase Procalcitonin 0.16 COVID-19 ([facility]) COVID-19 [employer] Com 05/09/21 16:18 MCV MCH MCHC RDW Plt Count MPV Immature Gran % (Auto) Neut % (Auto) Lymph % (Auto) Wilkes % (Auto) Eos % (Auto) Baso % (Auto) Lymph # (Auto) Wilkes # (Auto) Eos # (Auto) Baso # (Auto) Abs Immat Gran (auto) Absolute Neuts (auto) Absolute Nucleated RBC Nucleated RBC % (auto) O2 Saturation 94.0 ABG pH at Pt Temp 7.19 L* ABG pH (Temp Correct) 7.19 L* ABG pCO2 at Pt Temp 102 H* ABG pCO2 (Temp Corrct 103 H* ABG pO2 at Pt Temp 90 ABG pO2 (Temp Correct 91 ABG HCO3 39 H ABG Base Excess (Actual) 6.2 Anion Gap Estim Creat Clear Calc Estimated GFR Random Glucose Lactic Acid Calcium Total Bilirubin Direct Bilirubin AST ALT Alkaline Phosphatase Troponin I High Sens B-Natriuretic Peptide Total Protein Albumin Lipase Procalcitonin COVID-19 ([facility]) COVID-19 Clin Com Imaging Radiologist's Impressions: Impressions Chest X-Ray 05/09/21 13:29 IMPRESSION: Patchy bilateral airspace opacities and right-sided pleural effusion which are new/increased when compared to the prior examination. Stable cardiomegaly. Findings can be seen in the setting of CHF. An underlying infectious or inflammatory process could be considered in the appropriate clinical setting. Chest CT 05/09/21 16:37 IMPRESSION: Small bilateral pleural effusions with associated atelectasis of the lung bases and smooth interlobular septal thickening are likely related with pulmonary edema. However, an underlying infectious or inflammatory process cannot be entirely excluded. Mediastinal, epicardial, and axillary lymph nodes are indeterminate but likely reactive in nature. Cardiomegaly. Assessment and Plan (1) Acute exacerbation of chronic obstructive airways disease: Status: Acute (2) Acute and chronic respiratory failure with hypercapnia: Status: Acute (3) Asthma: Status: Acute (4) Hx of cardiac cath: Status: Acute (5) Shortness of breath: Status: Acute (6) Uncontrolled hypertension: Status: Acute (7) CAD (coronary artery disease): Status: Acute (8) Paroxysmal atrial fibrillation: Status: Acute (9) Hyperlipidemia: Status: Acute (10) COPD (chronic obstructive pulmonary disease): Status: Acute (11) GABRIELLE on CPAP: Status: Acute (12) Obesity: Status: Acute Clearly and an acute on chronic hypercapnic respiratory failure and in large part a combination of underlying COPD with with probable exacerbation but no apparent infectious reason along with untreated obstructive sleep apnea and obesity hypoventilation so the entire plan revolved around instituting BiPAP and covering him for COPD exacerbation with IV steroids and aggressive bronchodilator therapy
[2021-05-09] MEDS: methylPREDNISolone Sod Succ 125 MG/2 ML VIAL IVPUSH (18:34)
[2021-05-09 18:43] LABS: ABG Base Excess 8.3 mmol/L; ABG HCO3 42 mmol/L (22-26); ABG pCO2 107 mmHg (32-45); ABG pCO2 TC 106 mmHg (32-45); ABG pH 7.19 (7.35-7.45); ABG pO2 96 mmHg (83-108); ABG pO2 TC 95 (83-108)
--- NOTE | 2021-05-09 18:43 | MHC.CM.PN ---
CM requested to meet with pt and brother regarding hospice and [employer] per Dr. Garcia. Dr Guerra in to evaluate pt. Asked for CM to be present. Pt initially stated he wanted hospice care. Dr. Guerra further explained [employer] and hospice care vs having some medical treatment for his end stage COPD, as he is only 61 years old.. Upon further conversation with MD and brother, pt requests to have medical treatment at this time to see if his condition improves. Pt is currently on Bipap and is A&O and able to make decisions. HCP reviewed, completed and signed. HCP/brother Rogelio Tracy. Pt states that his brother knows what he wants . Pt will be admitted to ICU. IMM reviewed with HCP/brother Rogelio Tracy and signed 05/09/2021@1835. Pt lives with his brother, uses a CPAP and a wheelchair. Brother tells CM that the CPAP does not fit his brother well, and that's why he doesn't use it as ordered. Pt has no services. D/C plan depends and hospital course. Home with [facility] if pt recovers vs Hospice. Brother is agreeable to [facility] if needed. Contact card given. CM to follow for d/c needs.
[2021-05-09 18:47] LABS: ABG Refer to POC result
[2021-05-09] MEDS: LORazepam 2 MG/ML VIAL 1 MG IVPUSH (20:05)
[2021-05-09 20:20] LABS: Appearance Urine CLEAR; Color Urine DK YELLOW; Glucose Urine UA NEG (NEG); Leukocyte Esterase Urine NEG (NEG); Nitrite Urine NEG (NEG); PH 5.5 (5.0-8.0); Specific Gravity - Urine >= 1.030 (1.005-1.025); UACC Culture Trigger NO; Urine Blood TRACE (NEG); Urine Ketones NEG (NEG); Urine Protein 2+ MG/DL (NEG-TRACE)
[2021-05-09 20:20] LABS: Venous Blood Gas Refer to POC result
[2021-05-09 20:21] LABS: VBG HCO3 35 mmol/L (22-26); VBG pCO2 67 mmHg; VBG pH 7.32 (7.32-7.43); VBG pO2 156 mmHg
[2021-05-09 20:41] LABS: Amphetamine Screen Urine Not Detected (Not Detect); Barbiturates, Urine Not Detected (Not Detect); Benzodiazepines Screen Urine Not Detected (Not Detect); Cannabinoid Screen Urine Not Detected (Not Detect); Cocaine Screen Urine Not Detected (Not Detect); Fentanyl, urine Not Detected (Not Detect); Opiate Screen Urine Not Detected (Not Detect); Phencyclidine Screen Urine Not Detected (Not Detect)
[2021-05-09 20:42] LABS: Granular Casts Urine 0-2 /LPF; Mucus Urine TRACE /LPF; Squamous Epithelial Cell Urine 1+ /LPF
[2021-05-09 20:43] LABS: Bacteria Urine TRACE /LPF; Hyaline Casts Urine 0-2 /LPF; WBC Urine 0 /HPF (0-4)
[2021-05-09] MEDS: Enoxaparin Sodium 40 MG/0.4 ML SYRINGE SUBCUT (20:43)
[2021-05-09] MEDS: Famotidine/PF 20 MG/2 ML VIAL IVPUSH (20:43)
[2021-05-09] MEDS: Albuterol/Iprat 2.5/0.5MG 3 ML AMPUL.NEB INHALE (21:12)
[2021-05-09 22:34] LABS: Glucose, Whole Blood 149 mg/dL (60-115)
[2021-05-09 22:50] LABS: ABG Base Excess 4.9 mmol/L; ABG HCO3 40 mmol/L (22-26); ABG pCO2 126 mmHg (32-45); ABG pCO2 TC 120 mmHg (32-45); ABG pH 7.11 (7.35-7.45); ABG pH TC 7.13 (7.35-7.45); ABG pO2 80 mmHg (83-108); ABG pO2 TC 74 (83-108)
[2021-05-09] MEDS: EPINEPHrine 1 MG/ML VIAL 0.3 MG SUBCUT (23:07)
[2021-05-09] MEDS: Albuterol Sulfate (0.083%) 2.5 MG/3 ML VIAL.NEB 5 MG INHALE (23:16)
[2021-05-09 23:26] LABS: ABG Refer to POC result
[2021-05-09 23:44] LABS: MANUAL DIFF FLAG NO
[2021-05-09 23:46] LABS: Basophils Percent Auto 0.4 % (0-2); Eosinophils Absolute Auto 0.1 X10*3/uL (0.0-0.4); Eosinophils Percent Auto 0.6 % (0-4); Hematocrit 50.7 % (42-52); Hemoglobin 15.4 g/dl (14.0-18.0); Lymphocytes Absolute Auto 0.8 X10*3/uL (1.2-4.9); Lymphocytes Percent Auto 7.4 % (20-40); Mean Corpuscular HGB Conc 30.4 g/dl (31.0-36.0); Mean Corpuscular Hemoglobin 28.3 pg (27.0-33.0); Mean Corpuscular Volume 93.2 fL (80-98); Mean Platelet Volume 10.9 fL (9.4-12.4); Monocytes Absolute Auto 0.4 X10*3/uL (0.1-1.2); Monocytes Percent Auto 3.9 % (2-11); NRBC Pct Auto 0.2 /100WBC (0.0-0.2); Neutrophils Percent Auto 86.7 % (45-73); Platelet Count 196 X10*3/uL (160-400); Red Blood Count 5.44 X10*6/uL (4.60-5.80); Red Cell Distribution Width 14.6 % (11.0-16.0); White Blood Count 10.4 X10*3/uL (4.8-10.8)
[2021-05-10] VITALS (8 sets, daily range): BP systolic 117–169; BP diastolic 52–77; PULSE 71–87; RESP 20–28; TEMP 36.4; O2SAT 71–90
--- NOTE | 2021-05-10 | ECG_ITS ---
Test Reason : CHANGE IN STATUS Blood Pressure : / mmHG Vent. Rate : 076 BPM Atrial Rate : 076 BPM P-R Int : 166 ms QRS Dur : 110 ms QT Int : 384 ms P-R-T Axes : 095 116 023 degrees QTc Int : 432 ms Normal sinus rhythm Right axis deviation Incomplete left bundle branch block Abnormal ECG When compared with ECG of 09-MAY-2021 13:39, No significant change was found Referred By: Ben Wynne Electronically Signed By:MECHE COLÓN
[2021-05-10 00:06] LABS: Troponin-I High Sensitivity 7.8 ng/L (<3.5-35.0)
[2021-05-10 00:10] LABS: Anion Gap 17 (12-20); Blood Urea Nitrogen 12 mg/dL (9-16); Calcium 8.7 mg/dL (8.4-10.2); Carbon Dioxide 29 mmol/L (22-29); Chloride 89 mmol/L (96-108); Creatinine Clr Calc Pharmacy 82.2; Estimated Glomerular Filt Rate > 60; Glucose Random 160 mg/dL (60-115); Sodium 129 mmol/L (135-145)
[2021-05-10 00:43] LABS: Magnesium 2.5 mg/dL (1.6-2.6)
[2021-05-10] MEDS: Insulin Regular, Human 100 UNIT/ML 3 ML VIAL 10 UNIT IVPUSH (00:49)
[2021-05-10 02:19] LABS: Glucose, Whole Blood 210 mg/dL (60-115)
[2021-05-10] MEDS: Albuterol Sulfate (0.083%) 2.5 MG/3 ML VIAL.NEB 5 MG INHALE (04:24)
[2021-05-10] MEDS: EPINEPHrine 1 MG/ML VIAL 0.3 MG SUBCUT (04:40)
[2021-05-10 04:44] LABS: MANUAL DIFF FLAG NO
[2021-05-10 04:45] LABS: Basophils Percent Auto 0.2 % (0-2); Eosinophils Percent Auto 0.1 % (0-4); Hematocrit 54.6 % (42-52); Hemoglobin 16.5 g/dl (14.0-18.0); Imm Gran Abs Auto 0.12 X10*3/uL (0.00-0.03); Imm Gran Pct Auto 0.7 % (0.0-0.4); Lymphocytes Absolute Auto 0.7 X10*3/uL (1.2-4.9); Lymphocytes Percent Auto 4.2 % (20-40); Mean Corpuscular HGB Conc 30.2 g/dl (31.0-36.0); Mean Corpuscular Hemoglobin 28.7 pg (27.0-33.0); Mean Corpuscular Volume 95.1 fL (80-98); Mean Platelet Volume 10.7 fL (9.4-12.4); Monocytes Absolute Auto 0.9 X10*3/uL (0.1-1.2); Monocytes Percent Auto 5.1 % (2-11); NRBC Pct Auto 0.2 /100WBC (0.0-0.2); Neutrophils Absolute Auto 15.2 X10*3/uL (2.0-8.3); Neutrophils Percent Auto 89.7 % (45-73); Platelet Count 226 X10*3/uL (160-400); Red Blood Count 5.74 X10*6/uL (4.60-5.80); Red Cell Distribution Width 14.6 % (11.0-16.0); White Blood Count 16.9 X10*3/uL (4.8-10.8)
[2021-05-10 04:47] LABS: VBG Base Excess 0.9 mmol/L; VBG HCO3 36 mmol/L (22-26); VBG pCO2 116 mmHg; VBG pO2 53 mmHg
[2021-05-10 04:54] LABS: Venous Blood Gas Refer to POC result
[2021-05-10 05:04] LABS: Alanine Aminotransferase 15 U/L (0-40); Albumin Level 4.4 g/dL (3.5-5.0); Alkaline Phosphatase 94 U/L (39-117); Anion Gap 17 (12-20); Aspartate Amino Transferase 21 U/L (5-37); Bilirubin Total 1.1 mg/dL (0.0-1.0); Blood Urea Nitrogen 16 mg/dL (9-16); Calcium 8.7 mg/dL (8.4-10.2); Carbon Dioxide 30 mmol/L (22-29); Chloride 90 mmol/L (96-108); Creatinine Clr Calc Pharmacy 61.9; Estimated Glomerular Filt Rate 49; Glucose Random 203 mg/dL (60-115); Magnesium 2.7 mg/dL (1.6-2.6); Phosphorus 8.8 mg/dL (2.7-4.5); Potassium 5.7 mmol/L (3.3-5.1); Sodium 131 mmol/L (135-145); Total Protein 8.4 g/dL (6.5-8.0)
[2021-05-10] MEDS: fentaNYL citrate/PF 100 MCG/2 ML VIAL IVPUSH (05:24)
--- NOTE | 2021-05-10 05:37 | PM.CCN ---
Critical Care Event Note Summary Date of Service: 05/10/21 Code activated: No Narrative: This case had a high probability of a clinically significant, sudden, or life threatening deterioration of this patient's condition which required my full and direct attention, intervention and personal management. Critical Care Time (minutes): 90 Comment: 61-year-old male with a past medical history of? COPD,? CAD, paroxysmal atrial fibrillation, obesity, GABRIELLE on CPAP? who was admitted yesterday for? acute? on chronic hypercapnic and hypoxic respiratory failure? due to COPD exacerbation. ? On initial arrival to the ICU patient VBGs? improved significantly.? But at 10:00 p.m. patient repisratory condition started to deteriorate, patient was more lethargic/obtunded on BiPAP, hypoxic to 70s and with poor? tidal volumes on BiPAP.? ABGs,? chest x-ray, and labs obatined.? ABGs as follow 7.11/126/80/40. ? Chest x-ray with no significant changes from previous,? troponin was negative.? Laboratory data was only significant for potassium of? 6,? but he did not have any peaked T-waves at this time.? The following interventions were done: 0.3mg? Epinephrine subQ x 2 , Albuterol nebulizer 10 mg, Lasix 40.? Patient? condition continued to deteriorate despite? interventions.? Rogelio (Brother/ healthcare proxy)? was contacted,? 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 ?Fentanyl was given and patient was? terminally removed from BiPAP? at 0525. At 0535On my exam- no response to verbal or physical stimuli, no spontaneous respiration, absent heart sounds, pupils are fixed and dilated, no corneal or gag reflex. Official time of 0535. Attending Dr Santos notified.? Not a candidate for ME case? Nursing notified organ donation.?
--- NOTE | 2021-05-10 06:24 | PC.NURSE ---
Patient was admitted to ICU at 1930. Patient was lethargic and unable to follow commands at this time. Patient not oriented and speech was garbled and unclear. Patient was on BiPAP 18/8 at 50%. Patient's oxygen was increased to 70% just prior to 2100 due to low o2 sats. Please see emar for albuterol tx and 0.3ml sq epi administration times. Patient with low tidal volumes, 0xygen was increased to 100%. Patient's brother was updated at this time by CEMENT PAVER. Patient became more synchronous with BiPAP and preferred to be positioned with right side up. At approximately 0400 patient once again with low oxygenation, brother notified. Brother arrived after 0500 and changed code status to Comfort Measures.
--- NOTE | 2021-05-10 06:59 | PM.DS ---
DS: Providers Provider Date of Service: 05/10/21 Date of admission: 05/09/21 17:55 Date of discharge: 05/10/21 Primary care physician: Eric Cabezas MD Admitting clinician: Barbie Santos Attending physician on discharge: Barbie Santos Discharging clinician: Barbie Santos DS: Diagnosis Discharge Diagnosis (1) Acute exacerbation of chronic obstructive airways disease: Status: Acute (2) Acute and chronic respiratory failure with hypercapnia: Status: Acute (3) Asthma: Status: Acute (4) Hx of cardiac cath: Status: Acute (5) Shortness of breath: Status: Acute (6) Uncontrolled hypertension: Status: Acute (7) CAD (coronary artery disease): Status: Acute (8) Paroxysmal atrial fibrillation: Status: Acute (9) Hyperlipidemia: Status: Acute (10) COPD (chronic obstructive pulmonary disease): Status: Acute (11) GABRIELLE on CPAP: Status: Acute (12) Obesity: Status: Acute (13) Acute on chronic respiratory failure with hypoxia and hypercapnia: Status: Acute (14) Status asthmaticus: Status: Acute DS: Summary Hospital Course Hospital Course: Initially both patient and his brother who is his proxy voiced a desire for comfort measures and was seen also by the hospitalist to then talked him into attempting BiPAP support because there was some initial improvement and at least try and overnight to see if there was any measure of success but did a definitely desired no other artificial means and and so he was admitted by me through the emergency room on BiPAP to which she was already responding with 1 documented repeat blood gas showing a drop in his pCO2 from greater than 100 down to 67 with pH beginning to correct and then in the late night category planner he all of a sudden was noted to be relatively hypoventilating with diminished mental status clearly a worsening of of acute hypercapnic respiratory failure with very poor respiratory excursion and then as time went by apparent work of breathing and distress with diaphoresis diaphragmatic effort accessory muscle effort etc. on BiPAP was all part of the picture and I repeated his EKG which did not show any acute changes he had already had 2 troponins which were clearly unequivocally negative and nonprogressive EKG and repeat stat chest x-ray did not show pneumothorax The other issue of course is that I am sure there was a measure of cerebral edema because of the acute hypercapnia which was part of his initial presentation but again in speaking with the family they refuse intubation and actually came in to see him before making a final comfort measure decision He did not developed an anion gap metabolic acidosis so the it whenever acidosis he did have was not lactate and 2 times during the night we gave him aggressive 10 mg inhaled albuterol treatment along with enhancing is inspiratory pressures on his device and giving him at least 1 or 2 rounds of 0.3 mg of epinephrine subcutaneously and this clearly was to no avail again you could see he was clinically with very low volume metric excursion and when the brother arrived he said absolutely comfort measure and the patient certainly did not last very long from that point forward and then became asystolic and was pronounced at 5:35 a.m. this morning Status at Discharge Cognitive/behavioral status at discharge: F patient is Overall status at discharge: other Time Spent with Patient Time attestation: Total time spent providing and/or coordinating discharge services: Discharge coordination time: Less than 30 minutes Specific discharge activities: Patient is and will be discharged to his promotions director Quality: Stroke Does the patient have a stroke diagnosis?: No Physical Exam Vital Signs: Vital Signs: Last Vital Signs Temp 97.5 F 05/10/21 00:00 Pulse 71 05/10/21 05:00 Resp 24 H 05/10/21 05:00 BP 154/67 H 05/10/21 05:00 Pulse Ox 71 L 05/10/21 05:00 Body Mass Index 39.3 Apneic and asystolic No carotid upstrokes no cardiac sounds no breath sounds DS: Data Data Completed and Pending Labs on day of discharge: Laboratory Results - last 24 hr 05/09/21 05/09/21 05/09/21 13:57 13:59 13:59 WBC RBC Hgb Hct MCV MCH MCHC RDW Plt Count MPV Immature Gran % (Auto) Neut % (Auto) Lymph % (Auto) [place] % (Auto) Eos % (Auto) Baso % (Auto) Lymph # (Auto) [place] # (Auto) Eos # (Auto) Baso # (Auto) Abs Immat Gran (auto) Absolute Neuts (auto) Absolute Nucleated RBC Nucleated RBC % (auto) O2 Saturation ABG pH at Pt Temp ABG pH (Temp Correct) ABG pCO2 at Pt Temp ABG pCO2 (Temp Corrct ABG pO2 at Pt Temp ABG pO2 (Temp Correct ABG HCO3 ABG Base Excess (Actual) VBG pH VBG pCO2 VBG pO2 VBG HCO3 VBG O2 Saturation VBG Base Excess Sodium 130 L Potassium 4.4 Chloride 87 L Carbon Dioxide 34 H Anion Gap 13 BUN 8 L Creatinine 0.79 Estim Creat Clear Calc 111.1 Estimated GFR > 60 POC Glucose Random Glucose 153 H Lactic Acid 0.9 Calcium 8.7 D Phosphorus Magnesium Total Bilirubin 1.1 H Direct Bilirubin 0.4 AST 24 D ALT 14 Alkaline Phosphatase 78 Troponin I High Sens B-Natriuretic Peptide Total Protein 7.6 Albumin 4.2 Lipase 51 Procalcitonin Urine Color Urine Appearance Urine pH Ur Specific [place] Urine Protein Urine Glucose (UA) Urine Ketones Urine Blood Urine Nitrite Ur Leukocyte Esterase Urine RBC Urine WBC Ur Squamous Epith Cells Urine Bacteria Hyaline Casts Granular Casts Urine Mucus Urine Opiates Screen Urine Fentanyl Screen Ur Barbiturates Screen Ur Phencyclidine Scrn Ur Amphetamines Screen U Benzodiazepines Scrn Urine Cocaine Screen U Marijuana (THC) Screen COVID-19 ([facility]) Negative COVID-19 Clin Com See Note 05/09/21 05/09/21 05/09/21 13:59 14:48 14:48 WBC 9.2 RBC 5.12 Hgb 14.7 Hct 46.2 MCV 90.2 MCH 28.7 MCHC 31.8 RDW 14.2 Plt Count 179 MPV 10.3 Immature Gran % (Auto) 0.7 H Neut % (Auto) 71.2 Lymph % (Auto) 14.3 L [place] % (Auto) 11.5 H Eos % (Auto) 2.0 Baso % (Auto) 0.3 Lymph # (Auto) 1.3 [place] # (Auto) 1.1 Eos # (Auto) 0.2 Baso # (Auto) 0.0 Abs Immat Gran (auto) 0.06 H Absolute Neuts (auto) 6.5 Absolute Nucleated RBC 0.000 Nucleated RBC % (auto) 0.0 O2 Saturation ABG pH at Pt Temp ABG pH (Temp Correct) ABG pCO2 at Pt Temp ABG pCO2 (Temp Corrct ABG pO2 at Pt Temp ABG pO2 (Temp Correct ABG HCO3 ABG Base Excess (Actual) VBG pH VBG pCO2 VBG pO2 VBG HCO3 VBG O2 Saturation VBG Base Excess Sodium Potassium Chloride Carbon Dioxide Anion Gap BUN Creatinine Estim Creat Clear Calc Estimated GFR POC Glucose Random Glucose Lactic Acid Calcium Phosphorus Magnesium Total Bilirubin Direct Bilirubin AST ALT Alkaline Phosphatase Troponin I High Sens 11.2 B-Natriuretic Peptide 372 H Total Protein Albumin Lipase Procalcitonin 0.16 Urine Color Urine Appearance Urine pH Ur Specific [place] Urine Protein Urine Glucose (UA) Urine Ketones Urine Blood Urine Nitrite Ur Leukocyte Esterase Urine RBC Urine WBC Ur Squamous Epith Cells Urine Bacteria Hyaline Casts Granular Casts Urine Mucus Urine Opiates Screen Urine Fentanyl Screen Ur Barbiturates Screen Ur Phencyclidine Scrn Ur Amphetamines Screen U Benzodiazepines Scrn Urine Cocaine Screen U Marijuana (THC) Screen COVID-19 ([facility]) COVID-19 Clin Com 05/09/21 05/09/21 05/09/21 16:18 18:34 20:10 WBC RBC Hgb Hct MCV MCH MCHC RDW Plt Count MPV Immature Gran % (Auto) Neut % (Auto) Lymph % (Auto) [place] % (Auto) Eos % (Auto) Baso % (Auto) Lymph # (Auto) [place] # (Auto) Eos # (Auto) Baso # (Auto) Abs Immat Gran (auto) Absolute Neuts (auto) Absolute Nucleated RBC Nucleated RBC % (auto) O2 Saturation 94.0 95.0 ABG pH at Pt Temp 7.19 L* 7.19 L* ABG pH (Temp Correct) 7.19 L* 7.20 L* ABG pCO2 at Pt Temp 102 H* 107 H* ABG pCO2 (Temp Corrct 103 H* 106 H* ABG pO2 at Pt Temp 90 96 ABG pO2 (Temp Correct 91 95 ABG HCO3 39 H 42 H ABG Base Excess (Actual) 6.2 8.3 VBG pH VBG pCO2 VBG pO2 VBG HCO3 VBG O2 Saturation VBG Base Excess Sodium Potassium Chloride Carbon Dioxide Anion Gap BUN Creatinine Estim Creat Clear Calc Estimated GFR POC Glucose Random Glucose Lactic Acid Calcium Phosphorus Magnesium Total Bilirubin Direct Bilirubin AST ALT Alkaline Phosphatase Troponin I High Sens B-Natriuretic Peptide Total Protein Albumin Lipase Procalcitonin Urine Color DK YELLOW Urine Appearance CLEAR Urine pH 5.5 Ur Specific [place] >= 1.030 H Urine Protein 2+ H Urine Glucose (UA) NEG Urine Ketones NEG Urine Blood TRACE Urine Nitrite NEG Ur Leukocyte Esterase NEG Urine RBC 5-9 H Urine WBC 0 Ur Squamous Epith Cells 1+ Urine Bacteria TRACE Hyaline Casts 0-2 Granular Casts 0-2 Urine Mucus TRACE Urine Opiates Screen Urine Fentanyl Screen Ur Barbiturates Screen Ur Phencyclidine Scrn Ur Amphetamines Screen U Benzodiazepines Scrn Urine Cocaine Screen U Marijuana (THC) Screen COVID-19 ([facility]) COVID-19 Clin Com 05/09/21 05/09/21 05/09/21 20:15 22:29 22:45 WBC RBC Hgb Hct MCV MCH MCHC RDW Plt Count MPV Immature Gran % (Auto) Neut % (Auto) Lymph % (Auto) [place] % (Auto) Eos % (Auto) Baso % (Auto) Lymph # (Auto) [place] # (Auto) Eos # (Auto) Baso # (Auto) Abs Immat Gran (auto) Absolute Neuts (auto) Absolute Nucleated RBC Nucleated RBC % (auto) O2 Saturation 90.0 ABG pH at Pt Temp 7.11 L* ABG pH (Temp Correct) 7.13 L* ABG pCO2 at Pt Temp 126 H* ABG pCO2 (Temp Corrct 120 H* ABG pO2 at Pt Temp 80 L ABG pO2 (Temp Correct 74 L ABG HCO3 40 H ABG Base Excess (Actual) 4.9 VBG pH 7.32 VBG pCO2 67 VBG pO2 156 VBG HCO3 35 H VBG O2 Saturation 99.0 VBG Base Excess 6.0 Sodium Potassium Chloride Carbon Dioxide Anion Gap BUN Creatinine Estim Creat Clear Calc Estimated GFR POC Glucose 149 H Random Glucose Lactic Acid Calcium Phosphorus Magnesium Total Bilirubin Direct Bilirubin AST ALT Alkaline Phosphatase Troponin I High Sens B-Natriuretic Peptide Total Protein Albumin Lipase Procalcitonin Urine Color Urine Appearance Urine pH Ur Specific [place] Urine Protein Urine Glucose (UA) Urine Ketones Urine Blood Urine Nitrite Ur Leukocyte Esterase Urine RBC Urine WBC Ur Squamous Epith Cells Urine Bacteria Hyaline Casts Granular Casts Urine Mucus Urine Opiates Screen Urine Fentanyl Screen Ur Barbiturates Screen Ur Phencyclidine Scrn Ur Amphetamines Screen U Benzodiazepines Scrn Urine Cocaine Screen U Marijuana (THC) Screen COVID-19 ([facility]) COVID-19 Clin Com 05/09/21 05/09/21 05/09/21 23:35 23:35 23:35 WBC 10.4 RBC 5.44 Hgb 15.4 Hct 50.7 MCV 93.2 MCH 28.3 MCHC 30.4 L RDW 14.6 Plt Count 196 MPV 10.9 Immature Gran % (Auto) 1.0 H Neut % (Auto) 86.7 H Lymph % (Auto) 7.4 L [place] % (Auto) 3.9 Eos % (Auto) 0.6 Baso % (Auto) 0.4 Lymph # (Auto) 0.8 L [place] # (Auto) 0.4 Eos # (Auto) 0.1 Baso # (Auto) 0.0 Abs Immat Gran (auto) 0.10 H Absolute Neuts (auto) 9.0 H Absolute Nucleated RBC 0.020 H Nucleated RBC % (auto) 0.2 O2 Saturation ABG pH at Pt Temp ABG pH (Temp Correct) ABG pCO2 at Pt Temp ABG pCO2 (Temp Corrct ABG pO2 at Pt Temp ABG pO2 (Temp Correct ABG HCO3 ABG Base Excess (Actual) VBG pH VBG pCO2 VBG pO2 VBG HCO3 VBG O2 Saturation VBG Base Excess Sodium 129 L Potassium 6.0 H* D Chloride 89 L Carbon Dioxide 29 Anion Gap 17 BUN 12 Creatinine 1.10 Estim Creat Clear Calc 82.2 Estimated GFR > 60 POC Glucose Random Glucose 160 H Lactic Acid Calcium 8.7 Phosphorus Magnesium 2.5 Total Bilirubin Direct Bilirubin AST ALT Alkaline Phosphatase Troponin I High Sens 7.8 B-Natriuretic Peptide Total Protein Albumin Lipase Procalcitonin Urine Color Urine Appearance Urine pH Ur Specific [place] Urine Protein Urine Glucose (UA) Urine Ketones Urine Blood Urine Nitrite Ur Leukocyte Esterase Urine RBC Urine WBC Ur Squamous Epith Cells Urine Bacteria Hyaline Casts Granular Casts Urine Mucus Urine Opiates Screen Urine Fentanyl Screen Ur Barbiturates Screen Ur Phencyclidine Scrn Ur Amphetamines Screen U Benzodiazepines Scrn Urine Cocaine Screen U Marijuana (THC) Screen COVID-19 ([facility]) COVID-19 Clin Com 05/09/21 05/10/21 05/10/21 Unknown 02:15 04:36 WBC 16.9 H RBC 5.74 Hgb 16.5 Hct 54.6 H MCV 95.1 MCH 28.7 MCHC 30.2 L RDW 14.6 Plt Count 226 MPV 10.7 Immature Gran % (Auto) 0.7 H Neut % (Auto) 89.7 H Lymph % (Auto) 4.2 L [place] % (Auto) 5.1 Eos % (Auto) 0.1 Baso % (Auto) 0.2 Lymph # (Auto) 0.7 L [place] # (Auto) 0.9 Eos # (Auto) 0.0 Baso # (Auto) 0.0 Abs Immat Gran (auto) 0.12 H Absolute Neuts (auto) 15.2 H Absolute Nucleated RBC 0.030 H Nucleated RBC % (auto) 0.2 O2 Saturation ABG pH at Pt Temp ABG pH (Temp Correct) ABG pCO2 at Pt Temp ABG pCO2 (Temp Corrct ABG pO2 at Pt Temp ABG pO2 (Temp Correct ABG HCO3 ABG Base Excess (Actual) VBG pH VBG pCO2 VBG pO2 VBG HCO3 VBG O2 Saturation VBG Base Excess Sodium Potassium Chloride Carbon Dioxide Anion Gap BUN Creatinine Estim Creat Clear Calc Estimated GFR POC Glucose 210 H Random Glucose Lactic Acid Calcium Phosphorus Magnesium Total Bilirubin Direct Bilirubin AST ALT Alkaline Phosphatase Troponin I High Sens B-Natriuretic Peptide Total Protein Albumin Lipase Procalcitonin Urine Color Urine Appearance Urine pH Ur Specific [place] Urine Protein Urine Glucose (UA) Urine Ketones Urine Blood Urine Nitrite Ur Leukocyte Esterase Urine RBC Urine WBC Ur Squamous Epith Cells Urine Bacteria Hyaline Casts Granular Casts Urine Mucus Urine Opiates Screen Not Detected Urine Fentanyl Screen Not Detected Ur Barbiturates Screen Not Detected Ur Phencyclidine Scrn Not Detected Ur Amphetamines Screen Not Detected U Benzodiazepines Scrn Not Detected Urine Cocaine Screen Not Detected U Marijuana (THC) Screen Not Detected COVID-19 ([facility]) COVID-19 Clin Com 05/10/21 05/10/21 04:36 04:41 WBC RBC Hgb Hct MCV MCH MCHC RDW Plt Count MPV Immature Gran % (Auto) Neut % (Auto) Lymph % (Auto) [place] % (Auto) Eos % (Auto) Baso % (Auto) Lymph # (Auto) [place] # (Auto) Eos # (Auto) Baso # (Auto) Abs Immat Gran (auto) Absolute Neuts (auto) Absolute Nucleated RBC Nucleated RBC % (auto) O2 Saturation ABG pH at Pt Temp ABG pH (Temp Correct) ABG pCO2 at Pt Temp ABG pCO2 (Temp Corrct ABG pO2 at Pt Temp ABG pO2 (Temp Correct ABG HCO3 ABG Base Excess (Actual) VBG pH 7.10 L* VBG pCO2 116 VBG pO2 53 VBG HCO3 36 H VBG O2 Saturation 74.0 VBG Base Excess 0.9 Sodium 131 L Potassium 5.7 H Chloride 90 L Carbon Dioxide 30 H Anion Gap 17 BUN 16 Creatinine 1.46 H Estim Creat Clear Calc 61.9 Estimated GFR 49 POC Glucose Random Glucose 203 H Lactic Acid Calcium 8.7 Phosphorus 8.8 H Magnesium 2.7 H Total Bilirubin 1.1 H Direct Bilirubin AST 21 ALT 15 Alkaline Phosphatase 94 D Troponin I High Sens B-Natriuretic Peptide Total Protein 8.4 H Albumin 4.4 Lipase Procalcitonin Urine Color Urine Appearance Urine pH Ur Specific [place] Urine Protein Urine Glucose (UA) Urine Ketones Urine Blood Urine Nitrite Ur Leukocyte Esterase Urine RBC Urine WBC Ur Squamous Epith Cells Urine Bacteria Hyaline Casts Granular Casts Urine Mucus Urine Opiates Screen Urine Fentanyl Screen Ur Barbiturates Screen Ur Phencyclidine Scrn Ur Amphetamines Screen U Benzodiazepines Scrn Urine Cocaine Screen U Marijuana (THC) Screen COVID-19 ([facility]) COVID-19 Clin Com Discharge Plan Discharge Date/Time: 05/10/21 05:35 Patient Disposition: Discharge Diagnosis: Acute on chronic hypercapnic respiratory failure with status asthmaticus that was intractable Referrals: Eric Cabezas MD [Primary Care Provider] - 1 Week Discharge Medications: No Action furosemide 20 mg tablet 20 mg PO DAILY Qty: 90 RF: 3 diltiazem HCl 120 mg capsule,extended release 24hr 120 mg PO DAILY Qty: 90 RF: 3 fluticasone furoate-vilanterol [Breo Ellipta] 200-25 mcg/dose blister with device 1 inh inhalation DAILY Qty: 60 RF: 3 hydralazine 50 mg tablet 50 mg PO TID Qty: 90 RF: 5 Xarelto 20 mg tablet 20 mg PO DAILY Qty: 90 RF: 1 ipratropium-albuterol 0.5 mg-3 mg(2.5 mg base)/3 mL solution for nebulization 3 ml inhalation QID PRN (Reason: for wheezing) Qty: 360 RF: 3 albuterol sulfate [Ventolin HFA] 90 mcg/actuation HFA aerosol inhaler 2 puff PO QID Qty: 18 RF: 3 losartan 100 mg tablet 100 mg PO DAILY Qty: 90 RF: 1 montelukast 10 mg tablet 10 mg PO DAILY Qty: 90 RF: 1 isosorbide mononitrate 60 mg tablet extended release 24 hr 60 mg PO DAILY Qty: 90 RF: 3 Multaq 400 mg tablet 400 mg PO Q12H 90 Days Qty: 180 RF: 1 ezetimibe [Zetia] 10 mg tablet 10 mg PO DAILY 90 Days Qty: 90 RF: 1 bupropion HCl 150 mg tablet sustained-release 12 hr 300 mg PO DAILY RF: 0 atorvastatin 80 mg tablet 80 mg PO BEDTIME RF: 0 Discharge Date/Time: 05/10/21 05:35
--- NOTE | 2021-06-26 06:14 | P.CDIR_ITS ---
Retrospective Query PHYSICIAN'S DOCUMENTATION REQUEST Date of Query: 06/26/21614 Patient Name: Isacc Frank Admit Date: 05/09/21 Dear Doctor, A review of the medical record indicates additional documentation may be needed. Please review below and update the documentation accordingly. Clinical Indicators: Risk Factors/Clinical Indicators/Treatments H&P: 05/09 -patient came in lethargic as a manifestation of altered mental status. ICU: 05/10 - Obtunded, lethargic, respiratory started to deteriorate on BIPAP. Acute hypercapnic and hypoxic respiratory failure due to COPD exacerbation, untreated GABRIELLE. D/S: 05/10 - career guidance counselor he all of a sudden noted to be relatively hypoventilating with diminished mental status, using accessory muscles, poor respiratory excursion, distress, cerebral edema. 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 * Hypoxic Encephalopathy * Anoxic Encephalopathy * Toxic/metabolic Encephalopathy * Due to a specified condition (such as UTI, hyponatremia, CVA, etc.) * Other (please specify) * Unable to determine Use of terms such as suspected, likely, concern for, or probable (associated with a specific diagnosis that is being evaluated, monitored, or treated as if it exists) are acceptable and can be coded in the inpatient setting, when documented at the time of discharge. Thank you, Christen Ayala CCS, CDIS Extension: [phone] Please use your independent medical judgment in providing your response. THIS QUERY IS PART OF THE PERMANENT MEDICAL RECORD
== END 2021-05-10 05:35 | disposition expired | DRG 190 ==
LOC: HO.ED 15:53 → HO.ICU 18:53
PROVIDERS: Internal Medicine; Physician Assistant; Registered Nurse Community Health; Admitting Provider Internal Medicine Cardiovascular Disease; Emergency Provider Emergency Medicine; PCP Internal Medicine; Visit Provider Internal Medicine Cardiovascular Disease
DX: J44.1 Chronic obstructive pulmonary disease with (acute) exacerbation (principal); J96.22 Acute and chronic respiratory failure with hypercapnia; J96.21 Acute and chronic respiratory failure with hypoxia; G93.6 Cerebral edema; J45.902 Unspecified asthma with status asthmaticus; E66.2 Morbid (severe) obesity with alveolar hypoventilation; G93.1 Anoxic brain damage, not elsewhere classified; E66.01 Morbid (severe) obesity due to excess calories; I25.10 Atherosclerotic heart disease of native coronary artery without angina pectoris; E78.5 Hyperlipidemia, unspecified; I48.0 Paroxysmal atrial fibrillation; Z99.89 Dependence on other enabling machines and devices; Z68.39 Body mass index [BMI] 39.0-39.9, adult; Z20.822 Contact with and (suspected) exposure to COVID-19; Z87.891 Personal history of nicotine dependence; Z79.01 Long term (current) use of anticoagulants; Z79.51 Long term (current) use of inhaled steroids; Z79.899 Other long term (current) drug therapy; Z51.5 Encounter for palliative care
CPT/HCPCS: 36415; 71045; 71250; 80048; 80053; 80076; 80307; 81001; 82803; 82947; 83605; 83690; 83735; 83880; 84100; 84145; 84484; 85025; 87040; 87635; 93005; 94640; 99285; J0171; J1650; J1940; J2060; J2930; J3010